=== PATIENT | male | born 1995 | race Two or more races ===

== ENCOUNTER 2024-12-18 12:35 | Emergency (ER) | payer OTHER ==
[~2024-12-18] VITALS: Ht 190.5 cm; Wt 108.9 kg
[2024-12-18] MEDS ORDERED: RISPERDAL2 MG (13:02)
[2024-12-18 13:03] VITALS: BP 163/89; O2SAT 98
[2024-12-18 14:50] LABS: BASO % 0.5 % (0.1-1.2); EOS # 0.04 (0.04-0.54); EOS % 0.5 % (0.7-7.0); LYMPH # 1.67 (1.18-3.74); LYMPH % 20.1 % (19.3-53.1); MEAN PLATELET VOLUME 10.30 fl (9.4-12.4); MONO # 0.68 (0.24-0.82); MONO % 8.2 % (4.7-12.5); NEUT # 5.83 (1.56-6.13); NEUT % 70.3 % (34.0-71.1); RED CELL DISTRIBUTION WIDTH 12.4 % (11.6-14.4)
[2024-12-18 15:07] LABS: URINE APPEARANCE Clear; URINE BILIRRUBIN Negative (NEGATIVE); URINE BLOOD Trace; URINE COLOR Yellow; URINE GLUCOSE Negative (NEGATIVE); URINE KETONE Negative (NEGATIVE); URINE LEUKOCYTE Negative; URINE NITRATE Negative; URINE PROTEIN Negative (NEGATIVE); URINE UROBILINOGEN 0.2 E.U./dl
[2024-12-18 15:11] LABS: URINE RBC 9.6 uL (0.0-20.8)
[2024-12-18 15:16] LABS: URINE BACTERIA 2.3 uL (0.0-1933); URINE CAST 0.00 uL (0.0-1.40); URINE EPITHELIAL CELLS 0.3 uL (0.0-38.8); URINE WBC 1.5 uL (0.0-23.2)
[2024-12-18 15:17] LABS: BUN CREA RATIO 15.0 (7.0-25.0); CREATININE SERUM 1.15 mg/dL (0.70-1.30); GFR 75.18; GLUCOSE FASTING 139.0 mg/dL (65-100); OSMOLALITY SERUM 281.0 MOSM/KG (275-295)
[2024-12-18] MEDS ORDERED: ACETAMINOPHEN 500 MG GEL..CAP PO ONE (15:52)
== END 2024-12-18 16:13 | disposition home or self-care (01) ==
LOC: ER 14:08
PROVIDERS: Emergency Medicine
DX: R10.9 Unspecified abdominal pain (principal)